=== PATIENT | male | born 1995 | race Caucasian/White ===

== ENCOUNTER → 2021-03-29 11:17 | Outpatient (CLI) | payer OTHER, SELFPAY ==
[2021-03-29 11:52] LABS: COVID19 -Nasal RAPID Negative (Negative)
== END ==
PROVIDERS: Visit Provider Nurse Practitioner Family
DX: Z20.822 Contact with and (suspected) exposure to COVID-19 (principal); J02.9 Acute pharyngitis, unspecified; R09.81 Nasal congestion; R52 Pain, unspecified
CPT/HCPCS: 87635

== ENCOUNTER → 2021-04-03 13:28 | Outpatient (CLI) | payer OTHER, SELFPAY ==
[2021-04-03 14:00] LABS: COVID19 -Nasal RAPID Negative (Negative)
== END ==
PROVIDERS: Visit Provider Physician Assistant
DX: R05.9 Cough, unspecified (principal); Z20.822 Contact with and (suspected) exposure to COVID-19
CPT/HCPCS: 87635